=== PATIENT | male | born 1980 | race Caucasian/White ===

== ENCOUNTER 2020-08-03 07:04 | Emergency (ER) | payer OTHER ==
[2020-08-03] MEDS ORDERED: NA CHLORIDE 0.9% 1,000 ML ONE (07:51)
[2020-08-03 07:52] LABS: Absolute Lymphocytes (CBC) 0.9 K/uL (0.7-4.9); Basophils % 0.4 % (0-1.3); Hematocrit 45.3 % (39.6-49.0); Lymphocytes % 7.2 % (15.3-44.8); MPV 9.1 fL (7.6-11.3); RBC Red Blood Cell Count 4.94 M/uL (4.33-5.43)
[2020-08-03 07:59] LABS: Protime INR 1.07
[2020-08-03] MEDS ORDERED: ONDANSETRON 4 MG/2 ML VIAL ONE (08:24)
[2020-08-03 08:39] LABS: ALT/SGPT 56 U/L (12-78); Albumin 4.2 g/dL (3.4-5.0); Alkaline Phosphatase 56 U/L (45-117); BUN Blood Urea Nitrogen 31 mg/dL (7-18); Bicarbonate 25 mmol/L (21-32); Bilirubin Direct 0.3 mg/dL (0-0.2); Glucose Level 122 mg/dL (74-106); Protein, Total 7.9 g/dL (6.4-8.2); Sodium Level 140 mmol/L (136-145)
[2020-08-03 08:41] LABS: AST/SGOT 91 U/L (15-37); Potassium 3.3 mmol/L (3.5-5.1)
[2020-08-03 09:28] LABS: Urine Blood Trace-lysed (Negative); Urine Glucose Negative (Negative); Urine Protein 1+ (Negative); Urine Specific Gravity >=1.030 (1.005-1.030); Urine pH 5.5 (5.0-7.0)
[2020-08-03] MEDS ORDERED: LORazepam 2 MG/ML VIAL ONE (09:36)
[2020-08-03 09:54] LABS: Barbiturates NEGATIVE (NEGATIVE); Benzodiazepines NEGATIVE (NEGATIVE); Cocaine NEGATIVE (NEGATIVE); METHAMPHETAM POSITIVE (NEGATIVE); Methadone NEGATIVE (NEGATIVE); Opiates NEGATIVE (NEGATIVE); Phencyclidine NEGATIVE (NEGATIVE); THC Cannibis POSITIVE (NEGATIVE)
--- NOTE | 2020-08-03 10:08 | RAD REPORT ---
EXAM DESCRIPTION: US - Abdomen Exam Limited - 08/03/2020 9:44 am CLINICAL HISTORY: nausea, abnormal LFTs COMPARISON: No comparisons FINDINGS: The gallbladder demonstrates no gallstones. No pericholecystic fluid or gallbladder wall t hickening. The common bile duct is normal measuring 5 mm. The liver demonstrates no findings of intrahepatic biliary dilatation. IMPRESSION: Unremarkable examination.
--- NOTE | 2020-08-03 10:56 | EDPHYS ---
Physician Documentation [facility] Name: Mann Boo Age: 40 yrs Sex: Male : 1980 Arrival Date: 08/03/2020 Time: 07:12 Bed 13 Private MD: ED Physician Yogesh Brito HPI: 08/03 09:04 This 40 yrs old Male presents to ER via Ambulatory with complaints of AMS. rn 09:04 The patient presents with agitation, trouble concentrating. Onset: The symptoms/episode rn began/occurred yesterday. Possible causes: unknown. Current symptoms: In the emergency department the patient's symptoms are unchanged from the initial presentation. The patient has experienced similar episodes in the past. The patient has not recently seen a physician. Reports took 2 pills yesterday, thinking was percocet, but got them from somebody else so not sure, has chronic back pain and that is why he took them. No fever. Since taking pills has been "acting weird", diaphoretic, hallucinating, similar to previous bipolar episodes but has been years. Not suicidal or homicidal. Denies recent illness. + nausea, no abd pain or chest pain. + feels heart racing.. Historical: - Allergies: 07:20 No Known Allergies; tw2 - Home Meds: 07:20 None [Active]; tw2 - PMHx: 07:20 Bipolar disorder; tw2 - PSHx: 07:20 buldging disc, L5; tw2 - Immunization history:: Adult Immunizations. - Social history:: Smoking status: Patient reports the use of cigarette tobacco products, smokes one-half pack cigarettes per day, Patient uses alcohol, on a daily basis. street drugs, marijuana, "up until recently he smoked daily". - Family history:: not pertinent. - Hospitalizations: : No recent hospitalization is reported. ROS: 09:04 Constitutional: Negative for fever, chills, and weight loss, Eyes: Negative for injury, rn pain, redness, and discharge, Neck: Negative for injury, pain, and swelling, Cardiovascular: + palpitations Respiratory: Negative for shortness of breath, cough, wheezing, and pleuritic chest pain, Abdomen/GI: + nausea, neg for abd pain Back: Negative for injury and pain, : Negative for injury, bleeding, discharge, and swelling, MS/Extremity: Negative for injury and deformity, Skin: Negative for injury, rash, and discoloration, Neuro: Negative for headache, numbness, tingling, and seizure. Exam: 09:04 Constitutional: This is a well developed, well nourished patient who is awake, alert, rn holding emesis bag, seems agitated and restless Head/Face: Normocephalic, atraumatic. Eyes: Periorbital areas with no swelling, redness, or edema. ENT: dry MM Neck: Trachea midline, no masses palpated, and no cervical lymphadenopathy. Supple, full range of motion without nuchal rigidity, or vertebral point tenderness. No Meningismus. Cardiovascular: Tachycardic. No pulse deficits. Respiratory: No increased work of breathing, no retractions or nasal flaring. Abdomen/GI: Soft, non-tender Skin: Warm, no rash MS/ Extremity: Pulses equal, no cyanosis. Neurovascular intact. Full, normal range of motion. Equal circumference. Neuro: Awake and alert, GCS 15, oriented to person, place, time, and situation. Cranial nerves II-XII grossly intact. Motor strength 5/5 in all extremities. Sensory grossly intact. Cerebellar exam normal. Vital Signs: 07:14 Pulse 114; Resp 17; Temp 97.8(TE); Pulse Ox 99% on R/A; Weight 70.31 kg; Pain 8/10; tw2 08:04 BP 122 / 88; tr6 07:14 back pain, pts significant other states "thats why he took the pain killers" tw2 MDM: 07:22 Patient medically screened. rn 10:54 Differential Diagnosis: electrolyte abnormality, volume depletion, drug ingestion. Data rn reviewed: vital signs, nurses notes, lab test result(s), radiologic studies, ultrasound, and as a result, I will discharge patient. Counseling: I had a detailed discussion with the patient and/or guardian regarding: the historical points, exam findings, and any diagnostic results supporting the discharge/admit diagnosis, lab results, radiology results, the need for outpatient follow up, to return to the emergency department if symptoms worsen or persist or if there are any questions or concerns that arise at home. Response to treatment: the patient's symptoms have mildly improved after treatment, and as a result, I will discharge patient. Special discussion: I discussed with the patient/guardian in detail that at this point there is no indication for admission to the hospital. It is understood, however, that if the symptoms persist or worsen the patient needs to return immediately for re-evaluation. ED course: Drug screen + for Methamphetamines and marijuana, uses marijuana but does not use meth, possibly took meth yesterday instead of pain pills and then had this type of stimulant reaction. Feeling better now, not suicidal or homicidal, will dc home with rehydration and return precautions.. 08/03 07:30 Order name: Acetaminophen rn 08/03 07:30 Order name: Basic Metabolic Panel rn 08/03 07:30 Order name: CBC with Diff rn 08/03 07:30 Order name: ETOH Level rn 08/03 07:30 Order name: Hepatic Function 08/03 07:30 Order name: PT-INR rn 08/03 07:30 Order name: Ptt, Activated rn 08/03 07:30 Order name: Salicylate rn 08/03 07:30 Order name: Urine Drug Screen 08/03 07:54 Order name: CBC with Automated Diff; Complete Time: 09:01 EDIL 08/03 07:59 Order name: Protime (+INR); Complete Time: 09:01 EDIL 08/03 07:59 Order name: PTT, Activated Partial Thromb; Complete Time: 09:01 EDIL 08/03 08:25 Order name: Alcohol Serum/Plasma; Complete Time: 09:01 EDIL 08/03 08:41 Order name: Basic Metabolic Panel; Complete Time: 09:01 EDIL 08/03 07:30 Order name: EKG; Complete Time: 07:31 rn 08/03 07:30 Order name: EKG - Nurse/Tech; Complete Time: 08:18 rn 08/03 07:30 Order name: IV Saline Lock; Complete Time: 07:47 rn 08/03 07:30 Order name: Labs collected and sent; Complete Time: 07:47 rn 08/03 07:30 Order name: Urine Dipstick-Ancillary (obtain specimen); Complete Time: 09:53 rn 08/03 08:41 Order name: Liver (Hepatic) Function; Complete Time: 09:01 EDMS 08/03 08:41 Order name: Acetaminophen Level; Complete Time: 09:01 EDIL 08/03 08:49 Order name: Salicylates Level; Complete Time: 09:01 EDIL 08/03 09:02 Order name: US Abdomen Limited rn 08/03 09:29 Order name: Urine Dipstick-Ancillary; Complete Time: 10:08 EDIL 08/03 09:54 Order name: Urine Drug Screen; Complete Time: 10:08 EDIL 08/03 10:09 Order name: US; Complete Time: 10:54 EDMS Administered Medications: 08:03 Drug: Zofran (Ondansetron) 4 mg Route: IVP; Site: right wrist; tr6 08:04 Drug: NS 0.9% 1000 ml Route: IV; Rate: 1000 ml; Site: right wrist; tr6 09:52 Drug: Ativan (LORazepam) 1 mg Route: IVP; Site: right wrist; tr6 Disposition: 08/03/20 10:56 Discharged to Home. Impression: Dehydration, Adverse effect of methamphetamines. - Condition is Stable. - Discharge Instructions: Dehydration, Adult, Stimulant Use Disorder-Methamphetamines. - Medication Reconciliation Form, Thank You Letter, Antibiotic Education, Prescription Opioid Use, Work release form form. - Follow up: Private Physician; When: As needed; Reason: Recheck today's complaints, Re-evaluation by your physician. - Problem is new. - Symptoms have improved. Signatures: Dispatcher [employer] [facility] Yogesh Brito MD MD rn Wise, Tara, RN RN 2 Bere Figueroa RN RN tr6 Corrections: (The following items were deleted from the chart) 11:18 10:56 08/03/2020 10:56 Discharged to Home. Impression: Dehydration; Adverse effect of tr6 methamphetamines. Condition is Stable. Forms are Medication Reconciliation Form, Thank You Letter, Antibiotic Education, Prescription Opioid Use. Follow up: Private Physician; When: As needed; Reason: Recheck today's complaints, Re-evaluation by your physician. Problem is new. Symptoms have improved. rn
--- NOTE | 2020-08-03 10:56 | ER ---
Nurse's Notes [facility] Name: Mann Boo Age: 40 yrs Sex: Male : 1980 Arrival Date: 08/03/2020 Time: 07:12 Bed 13 Private MD: Diagnosis: Dehydration;Adverse effect of methamphetamines Presentation: 08/03 07:14 Chief complaint: Patient states: i think i overdosed on pain killers. i took 20 mg tw2 yeserday of Percocet's, last night i left reality. i had a bipolar episode. i am paranoid. Coronavirus screen: At this time, the client does not indicate any symptoms associated with coronavirus-19. Ebola Screen: Patient denies travel to an Ebola-affected area in the 21 days before illness onset. Initial Sepsis Screen: Does the patient meet any 2 criteria? No. Patient's initial sepsis screen is negative. Does the patient have a suspected source of infection? No. Patient's initial sepsis screen is negative. Risk Assessment: Do you want to hurt yourself or someone else? Patient reports no desire to harm self or others. Onset of symptoms was August 03, 2020. 07:14 Method Of Arrival: Ambulatory tw2 07:14 Acuity: JOSE E 3 tw2 07:14 Chief complaint: Spouse and/or significant other states: when he woke up about 5 am he tw2 was throwing up, sweating and shaking, mentally he came back but then was feeling like withdrawals. Chief complaint:. 07:14 Chief complaint: Patient states: I dont normally leave my mind so there might have been tw2 something else in those pills i took. Triage Assessment: 07:20 General: Appears in no apparent distress. uncomfortable, Behavior is anxious. Pain: tw2 Complains of pain in back. 07:20 GI: Reports nausea. tw2 Historical: - Allergies: 07:20 No Known Allergies; tw2 - Home Meds: 07:20 None [Active]; tw2 - PMHx: 07:20 Bipolar disorder; tw2 - PSHx: 07:20 buldging disc, L5; tw2 - Immunization history:: Adult Immunizations. - Social history:: Smoking status: Patient reports the use of cigarette tobacco products, smokes one-half pack cigarettes per day, Patient uses alcohol, on a daily basis. street drugs, marijuana, "up until recently he smoked daily". - Family history:: not pertinent. - Hospitalizations: : No recent hospitalization is reported. Screenin:04 Abuse screen: Denies threats or abuse. Nutritional screening: No deficits noted. tw2 Tuberculosis screening: No symptoms or risk factors identified. Fall Risk None identified. Assessment: 08:22 General: Appears distressed, uncomfortable, Behavior is cooperative, restless. Pain: tr6 Complains of pain in chronic back pain. Neuro: Level of Consciousness is awake, alert, obeys commands, Oriented to person, place, time, situation, Appropriate for age Gait is per pts girlfriend, pts gait has been unsteady since last night. Speech pt reports that at times he has been having difficulty "finding his words and speaking" since last night. Reports weakness. Cardiovascular: Patient's skin is warm and dry. Respiratory: No deficits noted. GI: No deficits noted. : No deficits noted. EENT: No deficits noted. Musculoskeletal: Reports weakness in generalized weakness since last night. Vital Signs: 07:14 Pulse 114; Resp 17; Temp 97.8(TE); Pulse Ox 99% on R/A; Weight 70.31 kg; Pain 8/10; tw2 08:04 BP 122 / 88; tr6 07:14 back pain, pts significant other states "thats why he took the pain killers" tw2 ED Course: 07:12 Patient arrived in ED. am4 07:17 Triage completed. tw2 07:20 Arm band placed on. tw2 07:20 Bed in low position. Call light in reach. Adult w/ patient. Warm blanket given. tw2 07:22 Yogesh Brito MD is Attending Physician. rn 07:24 Bere Figueroa RN is Primary Nurse. tr6 07:47 Inserted saline lock: 18 gauge in right wrist, using aseptic technique. tr6 10:06 No provider procedures requiring assistance completed. tr6 11:08 IV discontinued, intact, bleeding controlled, No redness/swelling at site. Pressure tr6 dressing applied. 11:12 Pulse ox on. NIBP on. mh5 Administered Medications: 08:03 Drug: Zofran (Ondansetron) 4 mg Route: IVP; Site: right wrist; tr6 08:04 Drug: NS 0.9% 1000 ml Route: IV; Rate: 1000 ml; Site: right wrist; tr6 09:52 Drug: Ativan (LORazepam) 1 mg Route: IVP; Site: right wrist; tr6 Outcome: 10:56 Discharge ordered by . rn 11:08 Discharged to home ambulatory. tr6 11:08 Condition: improved 11:08 Discharge instructions given to patient, Instructed on discharge instructions, follow up and referral plans. safety practices, Demonstrated understanding of instructions, follow-up care. 11:18 Patient left the ED. tr6 Signatures: Yogesh Brito MD MD rn Wise, Tara, RN RN pop2 Patricia Holley Elida Pollard Tiffany, RN RN tr6
[2020-08-03 11:27] VITALS: TEMP 97.8; O2SAT 99
[2020-08-03 11:28] VITALS: BP 122/88
--- NOTE | 2020-08-04 10:36 | EKG ---
Test Date: 2020-08-03 Test Time: 08:11:08 Accounts Payable Clerk: TTR MEASUREMENT RESULTS: Intervals: Rate: 94 NM: 126 QRSD: 136 QT: 394 QTc: 492 [place]: P: 65 NM: 126 QRS: 102 T: -59 INTERPRETIVE STATEMENTS: Normal sinus rhythm Rightward axis Left ventricular hypertrophy with QRS widening and repolarization abnormality Abnormal ECG No previous ECG available for comparison Electronically Signed On 08-04-20 10:32:08 CDT by Prince Boss
== END 2020-08-03 11:18 | disposition home or self-care (01) ==
LOC: ER 07:04
DX: E86.0 Dehydration (principal); T43.625A Adverse effect of amphetamines, initial encounter; F17.210 Nicotine dependence, cigarettes, uncomplicated
CPT/HCPCS: 85025; 80048; 36415; 80320; 80329 ×2; 85610; 80076; 85730; 81003; 80307; 76705; J7030; J2405; 93005; 96374; 96375; 99283